=== PATIENT | female | born 1990 | race Caucasian/White ===

== ENCOUNTER 2021-02-15 08:00 | Outpatient (RCR) | payer OTHER, SELFPAY | END 2021-03-19 16:03 | disposition home or self-care (01) | LOC: HO.OT 08:00 | PROVIDERS: PCP Internal Medicine; Visit Provider Physician Assistant | DX: M67.431 Ganglion, right wrist (principal) | CPT/HCPCS: 29125; 97035; 97110; 97140; 97165; 97760 ==